=== PATIENT | female | born 1955 | race Hispanic/Latino ===

== ENCOUNTER 2020-07-22 07:35 | Day surgery (SDC) | payer BC ==
[2020-07-18 15:46] LABS: Absolute Lymphocytes (CBC) 1.2 K/uL (0.7-4.9); Basophils % 0.4 % (0-1.3); Hematocrit 41.1 % (36.0-45.0); Lymphocytes % 24.8 % (15.3-44.8); MPV 9.5 fL (7.6-11.3); RBC Red Blood Cell Count 4.54 M/uL (3.86-4.86)
--- NOTE | 2020-07-18 15:52 | RAD REPORT ---
EXAM DESCRIPTION: RAD - Chest Pa And Lat (2 Views) - 07/18/2020 3:12 pm CLINICAL HISTORY: preop, pending hemorrhoid surgery COMPARISON: Portable January 2018 TECHNIQUE: Frontal and lateral views of the chest were obtained. FINDINGS: The lungs are clear. No focal mass, consolidation or failure findings. Interstitial tae ngs are prominent but not clearly different. Heart size is normal and central vasculature is within n ormal limits. No pleural effusion or pneumothorax seen. No acute bony finding noted. No aortic abn ormality. IMPRESSION: No acute cardiopulmonary process. Chest findings are not clearly different from compari son.
[2020-07-18 16:09] LABS: BUN Blood Urea Nitrogen 16 mg/dL (7-18); Bicarbonate 30 mmol/L (21-32); Glucose Level 85 mg/dL (74-106); Potassium 4.4 mmol/L (3.5-5.1); Sodium Level 140 mmol/L (136-145)
--- NOTE | 2020-07-19 11:23 | EKG ---
Test Date: 2020-07-18 Test Time: 14:44:05 [employer]icist [employer]: TRAVIS MEASUREMENT RESULTS: Intervals: Rate: 60 FL: 166 QRSD: 70 QT: 410 QTc: 410 [place]: P: 65 FL: 166 QRS: 49 T: 64 INTERPRETIVE STATEMENTS: Sinus rhythm with premature atrial complexes Otherwise normal ECG Compared to ECG 01/21/2018 11:25:05 Atrial premature complex(es) now present Electronically Signed On 07-19-20 11:20:24 CDT by Julien Chen
[2020-07-22] MEDS: Ringers Lactate 1,000 ML IV ONE ×2 (08:05→08:25)
[2020-07-22] MEDS ORDERED: propofoL 200 MG/20 ML VIAL IV ONE (08:23)
[2020-07-22] MEDS ORDERED: KETAMINE HCL 500 MG/5 ML VIAL ONE (08:23)
[2020-07-22] MEDS ORDERED: MIDAZOLAM HCL 2 MG/2 ML INJ ONE (08:23)
[2020-07-22] MEDS ORDERED: KETOROLAC 30 MG/ML INJ ONE (08:24)
[2020-07-22] MEDS ORDERED: dexAMETHasone 10 MG/ML VIAL ONE (08:24)
[2020-07-22] MEDS ORDERED: FENTANYL CITR 100 MCG/2 ML ONE (08:24)
[2020-07-22] MEDS ORDERED: LIDOCAINE 2% MPF 5 ML VIAL ONE (08:24)
[2020-07-22] MEDS ORDERED: ONDANSETRON 4 MG/2 ML VIAL ONE (08:26)
[2020-07-22] MEDS ORDERED: CIPROFLOXACIN 400mg IV 400 MG/200 ML BAG IV ONE (08:36)
--- NOTE | 2020-07-22 09:16 | P.BOP ---
Preoperative diagnosis: BRBPR prolapsed thrombosed tender hemorrhoid Postoperative diagnosis: same Primary procedure: EUA, Anoscopy, rigid proctoscopy, internal hemorrhoidectomy Estimated blood loss: <10cc Specimen: hemorrhoid hemorrhoid Findings: posterolateral Anesthesia: General Complications: None Drain(s): Other Transferred to: Recovery Room Condition: Good
[2020-07-22 09:59] VITALS: O2SAT 100
--- NOTE | 2020-07-22 11:13 | OP ---
Date of Procedure: 07/22/2020 Surgeon: Rodrigue Gomez MD Preoperative Diagnoses: Bright red blood per rectum, prolapsed thrombosed tender hemorrhoids. Postoperative Diagnosis: Bright red blood per rectum, prolapsed thrombosed tender hemorrhoids. Procedures: Examination under anesthesia, anoscopy, rigid proctoscopy, internal hemorrhoidectomy. Specimen: Hemorrhoid. Findings: Posterolateral hemorrhoid, internal. Anesthesia: General plus local. Indications: This is the case of a female, who comes to us, sent by the GI doctor with a history of bright red blood per rectum. She already has colonoscopy done. They found to have a prolapsed tende r hemorrhoid with bleeding, so they sent to us for hemorrhoidectomy. The benefits, alternatives, and risks of hemorrhoidectomy were fully explained to the patient, which include, but not limited to inf ection, bleeding, damage to adjacent structures, anesthesia complication, anal stricture, anal incont inence, recurrence, AK, and even . She also understands this may not relieve the symptoms. She might need more than one surgical intervention. We discussed her pros and cons of hemorrhoidal surg emmanuelle and also how to minimize bothering them including no heavy lifting and weight loss. She signed t he consent. Description Of Procedure: The patient was brought to the operating room placed in supine position. Anesthesia was done without complication. A time-out was called. The patient was placed in lithotom y position with proper protection. The area was prepped and draped in the usual sterile fashion. Af ter that area, rectal examination was done followed by a rigid proctoscopy all the way about 12 cm. We noticed an internal and external hemorrhoids. We noticed worst of the wound is bleeding. At this moment, she has an internal hemorrhoid in the posterolateral region. It was large, thrombosed, and prolapsed. At that moment, I injected local anesthetic over the region and then I proceeded to place an anoscope over the area once again watching the anal canal with the same findings. At that moment , I made a wedge incision over the area with a worst hemorrhoid that was bleeding. I removed the hem orrhoid from the sphincter and then transected the hemorrhoidal plexus with Harmonic Scalpel. The ar ea was irrigated, hemostasis obtained, and then the area was approximated, anoderm with 3-0 chromic. Surgicel placed over the area. After visualization of the area after injecting local anesthetic, we did not see any bleeding. The patient tolerated the procedure well. Anoscope was removed. The pat ient was sent to recovery in stable condition. Sponge count and instrument counts were correct. TAYLER/WOJCIECH Voice ID: [id number] Report ID: [id number]
[2020-07-22 11:17] VITALS: BP 133/67; TEMP 97.2
--- NOTE | 2020-07-22 11:19 | DS ---
Diagnoses: Bright red blood per rectum, prolapsed thrombosed tender hemorrhoids, internal. Procedure: EUA, anoscopy, proctoscopy, internal hemorrhoidectomy. Disposition: Home. Activity: As tolerated. No heavy lifting. Plan: Follow up in my office in 1 week. Call for appointment at [phone]. Medications: Include Tylenol No.3 q.4 hours p.r.n. pain, Bactrim DS p.o. b.i.d., Colace 100 p.o. b.i .d. p.r.n. constipation, Sitz baths 4 times a day and after every bowel movement. TAYLER/WOJCIECH Voice ID: [id number] Report ID: [id number]
== END 2020-07-22 11:59 | disposition home or self-care (01) ==
LOC: OR 07:35
PROVIDERS: ATTEND Surgery
PROC: 0DJD8ZZ Inspection of Lower Intestinal Tract, Via Natural or Artificial Opening Endoscopic (ICD-10-PCS; 2020-07-22)
PROC: 06BY4ZC Excision of Hemorrhoidal Plexus, Percutaneous Endoscopic Approach (ICD-10-PCS; principal; 2020-07-22 08:30)
DX: K64.5 Perianal venous thrombosis (principal); Z20.828 Contact with and (suspected) exposure to other viral communicable diseases
CPT/HCPCS: 93005; 85025; 80048; 36415; 88304; 71046; 46999; 45300; 46255; U0002; J2704; J2250; J3010; J1100; J7120; J2405; J0744